=== PATIENT | female | born 1950 | race Caucasian/White ===

== ENCOUNTER → 2017-12-29 06:48 | Outpatient (CLI) | payer MEDICARE | END | disposition home or self-care (01) | LOC: D.MRI 06:48 | DX: M25.561 Pain in right knee (principal) ==

== ENCOUNTER → 2018-01-14 09:55 | Outpatient (CLI) | payer MEDICARE ==
--- NOTE | ~2018-01-14 | EC ---
PATIENT:HUNTER SERRANO DATE OF SERVICE: 01/14/18 SEX: F MEDICAL RECORD: [id number] DATE OF : 54 LOCATION:D.[facility] AGE OF PATIENT: 67 ADMISSION DATE: 01/14/18 REFERRING PHYSICIAN: INTERPRETING PHYSICIAN: DYLAN KEN MD ECHOCARDIOGRAM REPORT ECHO CHARGES 4 ECHO COMPLETE Date: 01/14 CLINICAL DIAGNOSIS: CP/SOB/PALPITATIONS ECHOCARDIOGRAPHIC MEASUREMENTS (adult normal given) AC root (d.<3.7cm) 2.7 cm LV Septum d (<1.2 cm> 1.1 cm Valve Excursion 1.8 cm LV Septum (systole) 1.7 cm Left Atria (s.<4.0cm> 3.1 cm LVPW d(<1.2cm) 1.1 cm RV (d.<2.3cm) 3.2 cm LVPW (sytole) 1.7 cm LV diastole(<5.6CM) 5.1 cm MV E-F(>70mm/sec) cm LV systole 2.7 cm LVOT Diameter 1.7 cm MV exc.(>10mm) cm Est.ejection fraction (50-75%) % DOPPLER: LVIT cm/sec A 93.0 cm/sec E 79.0 cm/sec LA cm/sec RVSP 37.0 mmHg LVOT 106 cm/sec AOP1/2T m/s Asc. 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 Ken TAPE# PACS Pericardial Effusion N DATE OF SERVICE: FINDINGS: 1. Left ventricle has [id number] concentric left ventricular hypertrophy with inflow characteristics consistent with diastolic dysfunction with ejection fraction of 60% to 65%. 2. The left atrium is normal size, shape, structure, and function. 3. The aortic valve is normal. 4. The mitral valve is normal. 5. The right ventricle is mildly dilated. ECHOCARDIOGRAM REPORT [id number] HUNTER SERRANO 6. The tricuspid valve has mild tricuspid regurgitation. The RVSP is upper limits of normal. 7. The right atrium is normal. 8. Pulmonic valve is normal. 9. The pericardium is normal. CONCLUSIONS: The patient has evidence of mild hypertensive heart disease with preserved left ventricular systolic function. TRANSINT:[id number] Voice Confirmation ID: [id number] DOCUMENT ID: [id number] DYLAN KEN MD at 1435 CC: [id number] DICTATION DATE: 01/16/18 1108 LOAD DISPATCHER: 01/16/18 1129 DEP CLI 01/14/18 [id number] [place] [address]
== END | disposition home or self-care (01) ==
LOC: D.ECHO 09:55
DX: R07.9 Chest pain, unspecified (principal); R06.02 Shortness of breath; R00.2 Palpitations

== ENCOUNTER → 2018-04-28 16:53 | Outpatient (CLI) | payer MEDICARE ==
[~2018-04-28 16:53] MED LIST: DESERYL50 M2 PO; EFFEXOR75 MG PO; GLUCOSAMINE HC500 MG PO; LEVOXYL125 MCG; LIPITOR10 MG PO; MAG-OX 400 MG400 MG PO; MIRAPEX1.5 MG PO; NEXIUM20 MG PO
[2018-04-28 19:32] LABS: LDL-HDL RATIO 3.3 ratio (1.5-3.5)
[2018-05-13 06:48] VITALS: BMI 33.8
== END | disposition home or self-care (01) ==
LOC: D.LABREF 16:53
PROVIDERS: Internal Medicine Cardiovascular Disease
DX: E78.5 Hyperlipidemia, unspecified (principal)

== ENCOUNTER 2018-05-13 06:16 | Outpatient (CLI) | payer MEDICARE ==
[~2018-05-13] VITALS: Ht 165.1 cm; Wt 92.3 kg
--- NOTE | ~2018-05-13 | OP ---
PATIENT NAME: HUNTER SERRANO MEDICAL RECORD: [id number] :54 LOCATION:D.CAT ADMISSION DATE: SURGEON: ALEXANDER KEN MD DATE OF OPERATION: 05/13/2018 PROCEDURE: Left heart cath, LV gram, coronary angiogram. ANESTHESIOLOGY RESIDENT: Alexander Ken MD DESCRIPTION OF PROCEDURE: The patient was brought to cardiac catheterization lab. The right wrist was sterilely prepped and draped. The patient had a 6-Wolof sheath placed in the right radial artery using modified Seldinger technique. The patient then had serial catheters utilized to selectively intubate the left coronary artery, the right coronary artery, and the LV cavity respectively. The patient then had a wrist band placed after the conclusion of the procedure. FINDINGS: 1. The left main is normal. 2. The LAD is normal. 3. The circumflex was dominant vessel and normal. 4. The RCA is nondominant, normal. HEMODYNAMICS: Left ventricular ejection fraction 65%. End-diastolic pressure is normal. There is no significant mitral regurgitation. No gradient across the aortic valve. IMPRESSION: Normal coronary arteries with normal LV systolic function. RECOMMENDATIONS: Medical management. TRANSINT:[id number] Voice Confirmation ID: [id number] DOCUMENT ID: [id number] ALEXANDER KEN MD at 0916 CC: [id number] DICTATION DATE: 05/13/18817 WESTERN TACK ASSEMBLY LINE WORKER: 05/13/18 0859 DEP CLI 05/13/18 [place] [address]
--- NOTE | ~2018-05-13 | HEMODYNAMI ---
PATIENT:HUNTER SERRANO MEDICAL RECORD: [id number] : 54 LOCATION:[facility] ADMISSION DATE: 05/13/18 Generatedon:05/13/20188:14 Patient name: HUNTER SERRANO Patient #: [id number] SSN: D OB: 1950 Date of study: 05/13/2018 Page: Of Hemodynamic Procedure Report Patient Data Patient Demographics Procedure consent was obtained First Name: HUNTER Gender: Female Last Name: MAGGIE : 1950 [facility] Initial: KVNG Age: 67 year(s) Patient #: [id number] Race: Unknown Additional ID: [id number] Contact details Address: [address] [place] [address] State: [place] City: [place] Zip code: [address] Past Medical History Allergies Allergen Reaction Date Comments Reported Other allergy 05/13/2018 erythromycin Admission Admission Data Admission Date: 05/13/2018 Admission Time: 6:16 Procedure Procedure Types Cath Procedure Diagnostic Procedure LHC LHC w/Coronaries Procedure Description Procedure Date Procedure Date: 05/13/2018 Procedure Start Time: 8:02 Procedure End Time: 8:14 Procedure Staff Name Function Alexander Jennings MD Performing Physician Padmaja Miller RT Monitor Gina López RN Nurse Hailey Vera RT Scrub Procedure Data Cath Procedure Fluoroscopy Diagnostic fluoroscopy Total fluoroscopy Time: 1.5 time: 1.5 min min Diagnostic fluoroscopy Total fluoroscopy dose: 160 dose: 160 mGy mGy Contrast Material Contrast Material Type Amount (ml) Isovue 300 18 Entry Location Entry Primary Successful Side Size Upsize Upsize Entry Closure Perla ccessful Closure Location (Fr) 1 (Fr) 2 (Fr) Remarks Device Remarks Radial Right 6 Fr Mechanical artery Short Compression Estimated blood loss: 5 ml Diagnostic catheters Device Type Used For End Catheter Placement DIAGNOSTIC [place] 110cm 5 LV Angiography Fr catheter ([id number]) DIAGNOSTIC [place] 110cm 5 Right Coronary Fr catheter (693329) Angiography DIAGNOSTIC [place] 110cm 5 Left Coronary Fr catheter (864886) Angiography Procedure Complications No complications Procedure Medications Medication Administration Route Dosage Oxygen etCO2 Nasal cannula 2 l/min Lidocaine 2% added to field 20 Heparin Flush Bag added to field 2 bags (1000units/500ml NS) 0.9% NaCl I.V. 100 ml/hr Radial Cocktail I.A. 1 syringe (Verapomil 2mg/Nitro 400mcg/Heparin 1500units) Versed I.V. 2 mg Fentanyl I.V. 50 mcg Hemodynamics Rest Heart Rate: 74 (bpm) Pressure Samples Time Site Value (mmHg) Purpose Heart Use Rate(bpm) 8:06 LV 113/5,8 EDP 61 Gradients Valve Time Site Site Mean SEP/DFP Peak To Heart Use 1 2 (mmHg) (sec/min) Peak Rate (mmHg) (bpm) Aortic 8:07 LV AO 87 Snapshots Pre Cath Intra NCS Post Cath Vital Signs Time Heart Resp SPO2 etCO2 NIBP (mmHg) Rhythm Pain Sedation Rate (ipm) (%) (mmHg) Status Level (bpm) 8:00:54 75 12 97 41.7 135/82(110) NSR 0 (11) 10(A) , No pain 8:05:10 86 10 94 44.8 121/68(97) NSR 0 (11) 10(A) , No pain 8:09:22 85 12 94 44.8 116/73(91) NSR 0 (11) 9(A) , No pain 8:13:34 79 12 94 44 109/69(90) NSR 0 (11) 10(A) , No pain Medications Time Medication Route Dose Verified Delivered Reason Notes Effectiveness by by 8:00:08 Oxygen etCO2 2 l/min Alexander Buffie used for Nasal Dick López RN procedure cannula 8:01:18 Lidocaine 2% added 20ml Alexander Alexander for local to vial Dick Jennings MD anesthetic field 8:01:25 Heparin Flush added 2 bags Alexander Alexander used for Bag to Dick Jennings MD procedure (1000units/500ml field LARIOS NS) 8:01:42 0.9% NaCl I.V. 100 Alexander Buffie Per ml/hr Dick López RN physician 8:03:03 Versed I.V. 2 mg Alexander Buffie for sedation Dick López RN, MD 8:03:08 Fentanyl I.V. 50 mcg Alexander Buffie for sedation Dick López RN, MD 8:05:54 Radial Cocktail I.A. 1 Alexander Alexander for (Verapomil syringe Dick Jennings MD vasodilation 2mg/Nitro MD 400mcg/Heparin 1500units) Procedure Log Time Note 7:34:30 Time tracking: Regular hours (M-F 7:00 - 5:00) 7:34:34 Plan of Care:Hemodynamics will remain stable., Cardiac rhythm will remain stable., Comfort level will be maintained., Respiratory function will remain adequate., Patient/ family verbilizes understanding of procedure., Procedure tolerated without complication., Recovers from procedure without complications.. 7:37:11 Gina López RN sent for patient. Start room use. 7:45:28 Patient received from Pre/Post Procedure Room to CCL 1 Alert and oriented. Tansferred to table in Supine position. 7:45:29 Warm blankets applied, and junior hugger turned on for patient comfort. 7:45:29 Correct patient and procedure confirmed by team. 7:45:31 Signed procedure consent form obtained from patient. 7:45:32 ECG and BP/O2 sat monitors applied to patient. 7:45:33 Full Disclosure recording started 7:59:47 Vital chart was started 7:59:50 Rhythm: sinus rhythm 8:00:02 H&P Date Dictated: 05/12/2018 Within 30 days and on chart., H&P Addendum completed by physician on day of procedure. (MUST COMPLETE FOR ALL OUTPATIENTS). 8:00:03 Pre-procedure instructions explained to patient. 8:00:04 Pre-op teaching completed and patient verbalized understanding. 8:00:05 Family in patients room. 8:00:07 Patient NPO since Midnight. 8:00:08 Oxygen 2 l/min etCO2 Nasal cannula was administered by Gina López RN; used for procedure; 8:00:22 Patient allergic to Other allergyerythromycin 8:00:25 Is the patient allergic to Iodine/contrast media? No. 8:00:28 Is patient on blood thinner?No 8:00:41 Patient diabetic? No. 8:00:46 Previous problem with sedation/anesthesia? No ? 8:00:51 Snore? Yes 8:00:52 Sleep apnea? No 8:00:53 Deviated septum? No 8:00:54 Opens mouth fully? Yes 8:00:56 Sticks out tongue? Yes 8:01:02 Airway obstruction? No ? 8:01:04 Dentures? No ? 8:01:09 Pre procedure: left dorsailis pedis pulse 2+ Normal; easily identifiable; not easily obliterated 8:01:12 Modified Nav's test Ulnar < 7 seconds 8:01:14 Patient pain scale 0/10 ?. 8:01:18 Lidocaine 2% 20ml vial added to field was administered by Alexander Jennings MD; for local anesthetic; 8:01:20 IV patent on arrival in left forearm with 0.9% NaCl at [facility]. 8:01:22 Lab results completed and on chart. 8:01:25 Heparin Flush Bag (1000units/500ml NS) 2 bags added to field was administered by Alexander Jennings MD; used for procedure; 8:01:28 Right Radial & Left Groin area was prepped with chlora-prep and draped in sterile fashion 8:01:29 Alarms reviewed by R. N. 8:01:30 Sharps counted by scrub and verified by R.N. 8:01:31 Final Timeout: patient, procedure, and site verified with staff and physician. All members of the team are in agreement. 8:01:33 Right Radial site verified by team. 8:01:36 Physical assessment completed. ASA score P 2 - A patient with mild systemic disease as per Alexander Jennings MD. 8:01:40 Sedation plan: IV Moderate Sedation Medication:Versed, Fentanyl 8:01:42 0.9% NaCl 100 ml/hr I.V. was administered by Gina López RN; Per physician; 8:01:45 Use device set Radial Dx or PCI 8:01:46 ACIST Syringe (32743) opened to sterile field. 8:01:47 Medline Cath Pack ([id number]) opened to sterile field. 8:01:47 Bag Decanter () opened to sterile field. 8:01:48 DIAGNOSTIC WIRE .035 260cm J wire (551746) opened to sterile field. 8:01:48 ACIST Hand Control (46997) opened to sterile field. 8:01:49 ACIST Manifold (73213) opened to sterile field. 8:01:49 Tegaderm 4 x 4 (1626W) opened to sterile field. 8:01:51 MBrace Wrist Support ([id number]) opened to sterile field. 8:01:54 SHEATH 6FR Slender (50-1251) opened to sterile field. 8:02:22 Procedure started. 8:02:29 Local anesthetic to right radial artery with Lidocaine 2% by Alexander Jennings MD.INITIAL ACCESS ONLY 8:03:03 Versed 2 mg I.V. was administered by Gina López RN; for sedation; 8:03:08 Fentanyl 50 mcg I.V. was administered by Gina López RN; for sedation; 8:04:00 Baseline sample Acquired. 8:04:49 A 6 Fr Short sheath was inserted into the Right Radial artery 8:05:02 A DIAGNOSTIC [place] 110cm 5 Fr catheter (620052) was advanced over the wire and used for LV Angiography. 8:05:23 Zero performed for pressure channel P1 8:05:54 Radial Cocktail (Verapomil 2mg/Nitro 400mcg/Heparin 1500units) 1 syringe I.A. was administered by Alexander Jennings MD; for vasodilation; 8:06:46 LV gram done using VENCES 8:06:46 LV hemodynamics recorded. 8:06:49 Injector settings: Ml/sec: 12, Volume: 8, 8:07:26 A DIAGNOSTIC [place] 110cm 5 Fr catheter (965847) was advanced over the wire and used for Right Coronary Angiography. 8:08:10 A DIAGNOSTIC [place] 110cm 5 Fr catheter (622077) was advanced over the wire and used for Left Coronary Angiography. 8:08:49 Catheter removed. 8:08:59 Sheath removed intact; hemostasis achieved with Mechanical Compression to the Right Radial artery. 8:09:02 Procedure ended.(Physican Out) 8:09:12 Fluoroscopy time 01.50 minutes. 8:09:15 Fluoroscopy dose: 160 mGy 8:09:15 Flurop Dose total: 160 8:09:20 Contrast amount:Isovue 300 18ml. 8:09:43 Sharps counted by scrub and verified by R.N. 8:09:45 TR band inflated with 10cc of air. 8:09:47 Insertion/operative site no bleeding no hematoma. 8:09:53 Post right radial artery:stable, clean and dry 8:09:54 Post Procedure Pulses reassessed and unchanged 8:09:57 Post-procedure physical assessment completed. ASA score P 2 - A patient with mild systemic disease as per Alexander Jennings MD. 8:10:00 Post procedure rhythm: unchanged. 8:10:03 Estimated blood loss: 5 ml 8:10:04 Post procedure instruction explained to patient.Patient verbalizes understanding. 8:10:05 Patient needs reinforcement of post procedure teaching. 8:10:12 Procedure and supply charges have been captured, reviewed, submitted and are correct. 8:10:18 Procedure Complication : No complications 8:10:20 See physician's report for complete and final results. 8:10:26 TR BAND Standard ([id number]) opened to sterile field. 8:14:27 Vital chart was stopped 8:14:28 Report given to Pre/Post Procedure Room. 8:14:32 Patient transfered to Pre/Post Procedure Room with Stretcher. 8:14:39 Procedure ended. 8:14:39 Full Disclosure recording stopped 8:14:43 End room use (Document Last) Device Usage Item Name Manufacture Quantity Catalog Hospital Part Current Minimal Lot# / Number Charge Number Stock Stock Serial# Code ACIST Acist 1 89973 [id number] 669214 114709 20 Syringe Medical (51405) Systems Inc Medline Medline 1 [id number] 698051 57415 660338 5 Cath Pack ([id number]) Bag Microtek 1 2001S 336772 53165 758009 5 Decanter Medical Inc. (2001S) DIAGNOSTIC [place] 1 749629 987481 061262 513416 30 WIRE .035 260cm J wire (844939) ACIST Hand Acist 1 19318 534372 957665 327407 5 Control Medical (57688) Systems Inc ACIST Acist 1 16079 261563 841662 547939 5 Manifold Medical (77656) Systems Inc Tegaderm 4 3M 1 1626W 565442 528306 489609 5 x 4 (1626W) MBrace Advanced 1 140-0250-00 077441 07270 671978 5 Wrist Vascular Support Dynamics ([id number]) SHEATH 6FR Terumo 1 [id number] 542262 328308 625534 40 Slender (80-1060) DIAGNOSTIC Terumo 1 40-9053 885693 914916 244900 5 [place] 110cm 5 Fr catheter (252436) TR BAND Terumo 1 [id number] 076755 563644 335446 40 Standard ([id number]) Signature Audit [place] Stage Time Signature Unsigned Intra-Procedure 05/13/2018 Padmaja 8:14:55 AM Counts RT(R) Signatures Monitor : Padmaja Signature : Counts RT Date : Time : [id number] [place] [address]
[2018-05-13] MEDS ORDERED: NEXIUM20 MG PO (06:32)
[2018-05-13] MEDS ORDERED: EFFEXOR75 MG PO (06:32)
[2018-05-13] MEDS ORDERED: MIRAPEX1.5 MG PO (06:34)
[2018-05-13] MEDS ORDERED: LIPITOR10 MG PO (06:34)
[2018-05-13] MEDS ORDERED: LEVOXYL125 MCG (06:34)
[2018-05-13] MEDS ORDERED: MAG-OX 400 MG400 MG PO (06:35)
[2018-05-13] MEDS ORDERED: DESERYL50 M2 PO (06:35)
[2018-05-13] MEDS ORDERED: GLUCOSAMINE HC500 MG PO (06:36)
[2018-05-13 06:48] VITALS: BP 115/76; Ht 165.1 cm; Wt 92.3 kg
[2018-05-13 07:28] LABS: CALC OSMOLALITY 284 mosm/kg (275-300); CALCIUM 8.9 mg/dL (8.5-10.1); CHLORIDE - SERUM 106 mmol/L (98-107); CREATININE - SERUM 0.8 mg/dL (0.6-1.3); GLUCOSE 117 mg/dL (74-106); POTASSIUM - SERUM 4.2 mmol/L (3.5-5.1); SODIUM 142 mmol/L (136-145); UREA NITROGEN 15 mg/dL (7-18); eGFR NON AFRICAN AMERICAN 76 mL/min (90-120)
[2018-05-13 07:55] LABS: BASOPHILS 0.2 % (0-2); EOSINOPHILS 4.9 % (0-7); HEMATOCRIT 38.8 % (36.0-48.0); HEMOGLOBIN 12.4 g/dL (12-16); IMMATURE GRANULOCYTES 0.2 % (0-5); LYMPHOCYTES 40.4 % (15-50); MCH 28.4 pg (26.0-34.0); MCV 88.8 fL (80.0-100.0); MEAN PLATELET VOLUME 9.4 fL (7.4-10.4); MONOCYTES 8.7 % (2-11); NEUTROPHILS 45.6 % (40-80); PLATELET COUNT 310 10x3/uL (130-400); RBC 4.37 10x6/uL (4.00-5.40); RDW 13.2 % (11.5-14.5); WBC 4.5 10x3/uL (4.8-10.8)
== END 2018-05-13 10:38 | disposition home or self-care (01) ==
LOC: D.CATH 06:16
PROVIDERS: Internal Medicine Cardiovascular Disease
DX: I20.9 Angina pectoris, unspecified (principal); R94.30 Abnormal result of cardiovascular function study, unspecified

== ENCOUNTER → 2019-11-18 10:43 | Outpatient (CLI) | payer MEDICARE ==
[2018-05-13 06:48] VITALS: BMI 33.8
== END | disposition home or self-care (01) ==
LOC: D.LABREF 10:43
PROVIDERS: ATTEND Internal Medicine Pulmonary Disease
DX: Z11.59 Encounter for screening for other viral diseases (principal)

== ENCOUNTER → 2019-11-22 08:11 | Outpatient (CLI) | payer MEDICARE ==
[2018-05-13 06:48] VITALS: BMI 33.8
--- NOTE | 2019-11-23 13:08 | EC ---
PATIENT:HUNTER SERRANO DATE OF SERVICE: 11/22/19 SEX: F MEDICAL RECORD: [id number] DATE OF : 54 LOCATION:D.RT AGE OF PATIENT: 68 ADMISSION DATE: 11/22/19 REFERRING PHYSICIAN: INTERPRETING PHYSICIAN: BAY NELSON MD ECHOCARDIOGRAM REPORT ECHO CHARGES 4 ECHO COMPLETE Date: 11/22/19 CLINICAL DIAGNOSIS: MICHAEL ECHOCARDIOGRAPHIC MEASUREMENTS (adult normal given) AC root (d.<3.7cm) 2.9 cm LV Septum d (<1.2 cm> 1.4 cm Valve Excursion 1.9 cm LV Septum (systole) 1.8 cm Left Atria (s.<4.0cm> 3.5 cm LVPW d(<1.2cm) 1.5 cm RV (d.<2.3cm) 2.7 cm LVPW (sytole) 2.0 cm LV diastole(<5.6CM) 5.5 cm MV E-F(>70mm/sec) cm LV systole 3.2 cm LVOT Diameter 1.7 cm MV exc.(>10mm) cm Est.ejection fraction (50-75%) % DOPPLER: LVIT cm/sec A 112 cm/sec E 96.0 cm/sec LA cm/sec RVSP 38.0 mmHg LVOT 135 cm/sec AOP1/2T m/s Asc. Ao 163 cm/sec RVOT 73.0 cm/sec RA cm/sec PA 113 cm/sec AV Gradient Peak 11.0 mmHg AV Mean 4.9 mmHg AV Area 2.0 cm MV Gradient Peak 8.1 mmHg MV Mean 2.8 mmHg MV Area cm COMMENTS: Wardrobe Mistress: 1 ROBERT BEALOE Account Executive: 3 Dr. Holland TAPE# PACS Pericardial Effusion N DATE OF SERVICE: Adequate 2D, color flow imaging, spectral Doppler, and M-Mode LVH is present. LV internal dimensions are normal. Wall motion is normal. EF is greater than or equal to 55%. Aortic valve is tricuspid. No evidence of stenosis by Doppler interrogation. Left atrium is normal at 3.5 cm. Mitral valve shows no prolapse. Trace MR. Right side grossly normal. Trace TR. TRANSINT:[id number] Voice Confirmation ID: [id number] DOCUMENT ID: [id number] ECHOCARDIOGRAM REPORT [id number] JESTER,HUNTER NELSON,BAY Christianson MD at 1308 CC: [id number] DICTATION DATE: 11/23/19825 CAR CLEANING SUPERVISOR: 11/23/19916 DEP CLI 11/22/19 [id number] [place] [address]
== END | disposition home or self-care (01) ==
LOC: D.RT 08:00
PROVIDERS: ATTEND Internal Medicine Pulmonary Disease
DX: R06.09 Other forms of dyspnea (principal)